=== PATIENT | female | born 1970 | race Caucasian/White ===

== ENCOUNTER → 2017-10-29 | Emergency (ER) | payer OTHER ==
[~2017-10-29] VITALS: Ht 162.6 cm; Wt 56.7 kg
[~2017-10-29] MED LIST: CATAFLAM50 MG PO; CIPRO500 MG PO; PERCOCET 5/321 UDTAB PO; PROTONIX40 M1 PO; PROTONIX40 MG PO; ZANTAC300 MG PO; ZOFRAN4 MG PO
== END | disposition home or self-care (01) ==
LOC: ER 07:09
DX: R10.84 Generalized abdominal pain (principal)

== ENCOUNTER 2023-01-04 07:11 | Emergency (ER) | payer OTHER ==
[~2023-01-04] VITALS: Ht 160 cm; Wt 56.7 kg
[2023-01-04] MEDS ORDERED: BENADRYL25 MG PO (07:27)
== END 2023-01-04 10:12 | disposition home or self-care (01) ==
LOC: ER 07:11
DX: K21.9 Gastro-esophageal reflux disease without esophagitis (principal); Z88.8 Allergy status to other drugs, medicaments and biological substances